=== PATIENT | male | born 1995 | race Caucasian/White ===

== ENCOUNTER 2023-12-03 22:09 | Observation (INO) | payer OTHER, SELFPAY ==
--- NOTE | ~2023-12-03 | MR_ITS ---
MRI of the brain Clinical History: Right-sided numbness Technique: Axial and sagittal T1-weighted images were acquired. These were followed by axial T2-weigh sol, diffusion weighted, gradient, and FLAIR images. Findings: There is no abnormal signal in the brain parenchyma. No acute infarct, intracranial hemorrh age, mass lesion. Ventricles and subarachnoid spaces are unremarkable. Orbits are unremarkable. Paranasal sinuses and m astoid air cells are clear. Major intracranial flow voids are intact. Sagittal midline structures are intact. IMPRESSION: Normal exam. Reviewed, dictated and finalized at location M. IMPRESSION: Normal exam.
--- NOTE | ~2023-12-03 | CT_ITS ---
CT ANGIOGRAM NECK AND HEAD History: Right-sided numbness. Technique: Axial noncontrast imaging of the brain was performed. Serial spiral axial images through t he head and neck were then obtained during arterial phase IV injection of 100 cc of Omnipaque 350. 3- D postprocessing and MIP images were then reconstructed on the remote workstation. Dose reduction owen hnique was used on this scan by utilizing automated exposure control and iterative reconstruction owen hnique. The dose-length product (DLP) was 1819.22 mGy-cm. CTA neck findings: Bilateral vertebral arteries are patent. Bilateral common carotid, internal carot id, and external carotid arteries are patent. No stenosis or large vessel occlusion. No aneurysm. The proximal right internal carotid artery demonstrates 0% stenosis relative to the normal distal artery lumen diameter. The proximal left internal carotid artery demonstrates 0% stenosis relative to the n ormal distal artery lumen diameter. CTA head findings: Distal vertebral arteries, basilar artery, and posters to arteries are patent. Dis cameron internal carotid arteries, middle cerebral arteries, and anterior cerebral arteries are patent. N o large vessel occlusion or stenosis. No aneurysm. Axial noncontrast imaging of the brain is unremarkable. No acute infarct, intracranial hemorrhage, or mass lesion seen. Elizabeth-white differentiation preserved. No mass effect or midline shift. Ventricles and subarachnoid spaces are nondilated. Orbits are unremarkable. The sinuses and mastoid air cells ar e clear. Calvarium intact. Impression: No significant abnormality seen. Reviewed, dictated and finalized at [facility]. Impression: No significant abnormality seen.
--- NOTE | ~2023-12-03 | MR_ITS ---
MRI of the thoracic spine Clinical History: Numbness Technique: Axial T2-weighted and gradient images, and sagittal T1-weighted, T2-weighted, and STIR cedric ges were acquired. Findings: There is no fracture or subluxation of the thoracic spine. Vertebral bodies maintain normal height and alignment. No bone marrow signal abnormality seen. Intervertebral spaces are well preserved throughout the thoracic spine. No disc bulge or herniation s een. No spinal canal stenosis or cord compression identified. Neural foramina are preserved throughou t the thoracic spine. No epidural mass or collection seen. No abnormal signal seen in the spinal cord. Paravertebral soft t issues are unremarkable. Impression: Unremarkable exam. Reviewed, dictated and finalized at location M. Impression: Unremarkable exam.
--- NOTE | ~2023-12-03 | MR_ITS ---
MRI of the lumbar spine Clinical History: Numbness Technique: Axial T2-weighted images, and sagittal T1-weighted, T2-weighted, and T2 fat-sat images wer e acquired. Findings: There is no fracture or subluxation of the lumbar spine. Vertebral bodies maintain normal h eight and alignment. Bone marrow signals are unremarkable. At L1-L2, L2-L3, L3-L4, L4-L5, intervertebral discs maintain normal signal and position. No disc bulg e or herniation T levels. There are minimal facet joint degenerative changes at these levels. No spin al canal stenosis or neural foraminal narrowing at these levels. At L5-S1, there is minimal central disc bulge/protrusion, with mild facet arthropathy. No central can al stenosis or neural foraminal narrowing. Paravertebral soft tissues are unremarkable. Impression: Minimal degenerative spondylosis at L5-S1, as above, otherwise unremarkable exam. Reviewed, dictated and finalized at [facility]. Impression: Minimal degenerative spondylosis at L5-S1, as above, otherwise unremarkable vidya murillo
--- NOTE | ~2023-12-03 | MR_ITS ---
MRI of the cervical spine Clinical History: Numbness Technique: Axial T2-weighted and gradient images, and sagittal T1-weighted, T2-weighted, and STIR cedric ges were acquired. Findings: There is no fracture or sublocation of the cervical spine. Vertebral bodies maintain normal height and alignment. No abnormal bone marrow signal abnormality seen. No disc bulge or herniation seen at any lumbar level. There is multilevel mild facet arthropathy. The re is mild bilateral neural foraminal narrowing at C3-C4, C4-C5, and possibly at C5-C6 and C6-C7. No canal stenosis or cord compression at any level. No epidural mass or collection seen. No abnormal signal seen in the spinal cord. Paravertebral soft t issues are unremarkable. Impression: Mild degenerative change, with multilevel mild facet arthropathy and multilevel mild neural foraminal narrowing, as detailed above. Reviewed, dictated and finalized at [facility]. Impression: Mild degenerative change, with multilevel mild facet arthropathy and multilevel mild neural foraminal narrowing, as detailed above.
[2023-12-03 22:11] VITALS: BP 131/76; PULSE 97; RESP 18; TEMP 36.4; O2SAT 99
[2023-12-03 22:29] VITALS: BP 120/84; PULSE 90; RESP 22; O2SAT 98
[2023-12-03 22:31] VITALS: BP 124/82; PULSE 91; RESP 20; O2SAT 99
[2023-12-03 22:46] VITALS: BP 118/75; PULSE 90; RESP 18; O2SAT 97
[2023-12-03 23:08] LABS: Basophils Absolute Auto 0.1 K/mm3 (0.0-0.1); Basophils Percent Auto 0.5 % (0.2-1.2); Eosinophils Absolute Auto 0.3 K/mm3 (0-0.3); Eosinophils Percent Auto 2.3 % (0-4.4); Hematocrit 42.7 % (42.0-52.0); Hemoglobin 14.5 g/dL (14.0-18.0); Immature Granulocyte Absolute 0.02 K/mm3 (0.00-0.031); Immature Granulocyte Percent A 0.2 % (0-0.5); Lymphocytes Absolute Auto 2.69 K/mm3 (0.9-3.2); Lymphocytes Percent Auto 24.3 % (18.3-44.2); Mean Corpuscular Hemoglobin 30.2 pg (26-34); Mean Platelet Volume 8.9 fl (7.4-10.4); Monocytes Absolute Auto 1.1 K/mm3 (0.1-0.6); Monocytes Percent Auto 9.5 % (2.6-8.5); Neutrophils Percent Auto 63.2 % (45.5-73.1); Platelet Count Result 310 k/mm3 (150-375); Red Cell Distribution Width 12.4 % (11.5-14.5); White Blood Count 11.1 K/mm3 (4.5-10.0)
[2023-12-03 23:15] VITALS: PULSE 80; RESP 18; O2SAT 98
--- NOTE | 2023-12-03 23:21 | PC.NURSE ---
care and report given to DARRYL Mora. all questions answered.
[2023-12-03 23:22] LABS: Alanine Aminotransferase 28 U/L (6-50); Albumin Level 4.1 g/dL (3.5-5.1); Alkaline Phosphatase 85 U/L (38-126); Anion Gap 9 mmol/L (4-12); Aspartate Amino Transferase 25 U/L (17-59); Bilirubin,Total 0.4 mg/dL (0.2-1.3); Blood Urea Nitrogen 18 mg/dL (9-20); Calcium 9.3 mg/dL (8.4-10.2); Carbon Dioxide 25 mmol/L (22-30); Chloride 105 mmol/L (98-107); Estimated CRCL calculation 95 ml/min; Estimated Glomerular Filt Rate > 60; Glucose 90 mg/dL (65-110); Magnesium 1.7 mg/dL (1.6-2.3); Potassium 4.1 mmol/L (3.4-5.0); Sodium 139 mmol/L (137-145)
--- NOTE | 2023-12-04 00:18 | ED.GENADULT ---
HPI - General Adult General Chief complaint: Unspecified Stated complaint: numbness Time Seen by Provider: 12/04/23 00:08 History of Present Illness HPI narrative: Patient is a 28-year-old male who presents to the emergency department this evening complaining of right sided numbness. Patient states that he was playing hockey around 9:00 p.m. when suddenly he started to feel some numbness and tingling down his right side of his body. Patient states that he did not get his he was just playing regularly did not fall or have any injuries. Patient denies any recent falls or trauma and states that he has had similar symptoms in the past that are precipitated with certain right upper extremity movement to but they have been localized to his right upper extremity and subside shortly after a few seconds but today the numbness and tingling was involving his entire right side of his body including his upper and lower extremity and continue to persist 3 hours later. Patient states that since then for the past 3 hours he has felt as though his entire right side is asleep. He denies any difficulty walking. Denies any history of back injury or trauma but states that he was told that he may have bulging disc in his neck which he has never followed up on and admits to history of right shoulder injury. Denies any additional symptoms or concerns at this time. Related Data Allergies Allergy/AdvReac Type Severity Reaction Status Date / Time No Known Allergies Allergy Verified 12/03/23 22:14 Review of Systems Review of Systems: All systems are reviewed and are negative unless stated otherwise in the HPI. Exam Narrative: General: Alert, awake, afebrile, in no acute distress. HEENT: PERRL, no rhinorrhea, no post nasal drip, oropharynx clear. Neck: No midline tenderness to palpation over the cervical spine. Cardiovascular: Regular rate and rhythm, no murmurs, rubs or gallops, no peripheral edema. Respiratory: Clear to auscultation bilaterally, no tachypnea, no wheezing, no rhonchi, no rubs, no respiratory distress. Abdomen: Soft, nontender, nondistended, no rebound, no guarding, no peritoneal signs. Musculoskeletal: No joint swelling or deformity, normal muscle tone. Back: No midline tenderness to palpation over the thoracic or lumbar spine. Skin: No rashes or petechia, no signs of infection. Psychiatric: Alert and oriented, normal behavior and judgment for situation. Neurological: Alert and oriented to person, place, and time. Follows all commands. No focal deficits, 5/5 motor strength in the bilateral upper and lower extremity, patient reports that his sensation over the bilateral upper and lower extremity is intact and equal but states that he feels as though his entire right side is numb, cranial nerves 2-12 grossly intact, speech is clear and fluent. Course Vital Signs Vital signs: Vital Signs Temperature 97.6 F 12/03/23 22:11 Pulse Rate 97 12/03/23 22:11 Respiratory Rate 18 12/03/23 22:11 Blood Pressure 131/76 12/03/23 22:11 Pulse Oximetry 99 12/03/23 22:11 Oxygen Delivery Room Air 12/03/23 22:11 Temperature 97.6 F 12/03/23 22:11 Pulse Rate 72 12/04/23 02:06 Respiratory Rate 15 12/04/23 02:06 Blood Pressure 118/76 12/04/23 02:06 Pulse Oximetry 98 12/04/23 02:06 Oxygen Delivery Room Air 12/03/23 22:11 Medical Decision Making MDM Narrative Medical decision making narrative: The patient was evaluated by myself in the emergency department. History is obtained from patient who is an independent historian and physical exam was performed. External medical records were reviewed at this time. IV was established and pertinent tests were ordered. Laboratory results obtained revealing no acute process. Imaging studies obtained included CT brain without IV contrast and CT angiogram of the head and neck with IV contrast which was independently interpreted by me revealing no acute process, which is pe
[2023-12-04 00:24] VITALS: BP 122/74; PULSE 80; RESP 15; O2SAT 100
[2023-12-04] MEDS: PANTOPRAZOLE SODIUM IV 40 MG VIAL IV PUSH (01:00)
[2023-12-04 02:06] VITALS: BP 118/76; PULSE 72; RESP 15; O2SAT 98
[2023-12-04 04:35] VITALS: BP 112/69; PULSE 68; RESP 18; TEMP 36.1; O2SAT 100
--- NOTE | 2023-12-04 04:51 | ADMGEN ---
This patient, Miguel Angel Sands, was admitted to [address] [place] [address] Room 310-01. Patient/family oriented to hospital policies and general routines including ID bracelet, bed and alarms, visiting hours, pain management, procedures, bathroom and other care routines, personal items, smoking policy, room service/diet, and visiting hours. Information on how to activate the Rapid Response Team has been discussed. Patient/Family are encouraged to report perceived risks to care and to ask questions if they do not understand what they are told or what they should do.
[2023-12-04 05:00] VITALS: BMI 24.9
--- NOTE | 2023-12-04 05:12 | ADMGEN ---
This patient, Miguel Angel Sands, was admitted to [address] [place] [address] Room 310-01. Patient/family oriented to hospital policies and general routines including ID bracelet, bed and alarms, visiting hours, pain management, procedures, bathroom and other care routines, personal items, smoking policy, room service/diet, and visiting hours. Information on how to activate the Rapid Response Team has been discussed. Patient/Family are encouraged to report perceived risks to care and to ask questions if they do not understand what they are told or what they should do.
--- NOTE | 2023-12-04 05:28 | PM.IMHP ---
H&P: HPI History of Present Illness Date/Time: 12/04/23 05:28 Chief Complaint: numbness Narrative: This is a 28-year-old male with no significant past medical history comes to the emergency room after having episode of numbness of right upper extremity and right lower extremity while playing hockey, denies weakness. Patient has been in his usual state of health up until this point, denies any fevers, rigors, chills, nausea, vomiting, diarrhea, abdominal pain, cough, sputum production, muscle aches and pains. Preliminary workup has been essentially nonrevealing. Patient has been placed in observation for further evaluation management and treatment. CT ANGIOGRAM NECK AND HEAD History: Right-sided numbness. Technique: Axial noncontrast imaging of the brain was performed. Serial spiral axial images through the head and neck were then obtained during arterial phase IV injection of 100 cc of Omnipaque 350. 3-D postprocessing and MIP images were then reconstructed on the remote workstation. Dose reduction technique was used on this scan by utilizing automated exposure control and iterative reconstruction technique. The dose-length product (DLP) was 1819.22 mGy-cm. CTA neck findings: Bilateral vertebral arteries are patent. Bilateral common carotid, internal carotid, and external carotid arteries are patent. No stenosis or large vessel occlusion. No aneurysm. The proximal right internal carotid artery demonstrates 0% stenosis relative to the normal distal artery lumen diameter. The proximal left internal carotid artery demonstrates 0% stenosis relative to the normal distal artery lumen diameter. CTA head findings: Distal vertebral arteries, basilar artery, and posters to arteries are patent. Distal internal carotid arteries, middle cerebral arteries, and anterior cerebral arteries are patent. No large vessel occlusion or stenosis. No aneurysm. Axial noncontrast imaging of the brain is unremarkable. No acute infarct, intracranial hemorrhage, or mass lesion seen. Elizabeth-white differentiation preserved. No mass effect or midline shift. Ventricles and subarachnoid spaces are nondilated. Orbits are unremarkable. The sinuses and mastoid air cells are clear. Calvarium intact. Impression: No significant abnormality seen. Review of Systems Review of Systems: Right upper extremity and right lower extremity numbness Constitutional: Constitutional: Denies body ache(s), Denies chills, Denies fever(s), Denies headache(s) and Denies night sweats Eyes: Eyes: Denies change in vision ENT: Denies dysphagia, Denies nasal congestion, Denies nasal discharge, Denies odynophagia and Denies disequilibrium Cardiovascular: Cardiovascular: Denies chest pain Respiratory: Respiratory: Denies chest congestion and Denies cough Gastrointestinal: Gastrointestinal: Denies abdominal pain, Denies diarrhea, Denies nausea and Denies vomiting Genitourinary: Genitourinary: Denies dysuria Musculoskeletal: Musculoskeletal: Denies back pain, Denies myalgias, Denies arthralgias, Denies muscle cramps, Denies muscle weakness, Reports numbness and Reports tingling Integumentary/Breasts: Skin/Breast: Denies rash Neurologic: Denies Abnormal speech present, Denies abnormal gait, Denies focal weakness, Reports numbness and Denies Sensory deficit (Neuro) Psychiatric: Psychiatric: Reports no additional psychiatric complaints and Reports as per HPI Endocrine: Endocrine: Denies cold intolerance, Denies heat intolerance, Denies polyphagia, Denies polydipsia, Denies polyuria and Denies palpitations Hematologic/Lymphatic: Hematologic/Lymphatic: Reports no additional hematologic/lymphatic complaints and Reports as per HPI Allergic/Immunologic: Allergic/Immunologic: Reports no additional allergic/immunologic complaints and Reports as per HPI [facility] Social History Social History Smoking status: Never smoker Alcohol intake: curr
--- NOTE | 2023-12-04 07:07 | PM.IMPN ---
Progress Note: A&P Assessment and Plan (1) Numbness on right side: Code(s): R20.0 - Anesthesia of skin Status: Acute Assessment and Plan: Right upper extremity tingling and numbness has been an ongoing issue since ' when his shoulder popped playing hockey. He reports 10 episodes since that time. He denies lower extremity involvement till now. Today he continues to endorse right upper extremity numbness and tingling from the shoulder to the fingertips. He notes that the right lower extremity numbness has since resolved. Strength and sensation remains intact on exam. Patient states that he has been on several float trips here recently. He did have a tick on him about a month ago that he had to remove. He denies any rashes, headache, neck stiffness, fever/chills. He notes that he has been under a bit more stress recently since starting to build a house and working full-time. Denies drug use. - Neurology consulted - MRI of brain and C/T spine to rule out demyelinating disease or other spinal cord pathology. MRI of entire neuraxis is unrevealing. - B12, TSH, folate ordered. Lyme disease also ordered, however unlikely. Time Spent With Patient Time with patient: 25 - 35 minutes Subjective Date/time seen: 12/04/23 07:07 Interval history: 28-year-old male who presents to the emergency department this evening complaining of right sided numbness. Patient is pleasant lying comfortably in bed. He states that the right upper extremity tingling and numbness has been an ongoing issue since where his shoulder popped playing hockey causing the symptoms. The symptoms later resolved and he thought nothing of them. He states since that time that he has had about 10 episodes of tingling and numbness to the right arm. He states that the right upper extremity tingling and numbness has been the same during each episode. He denies lower extremity involvement during any of these times. On assessment today he continues to endorse right upper extremity numbness and tingling from the shoulder to the fingertips. He notes that the right lower extremity numbness has since resolved. Strength and sensation remains intact on exam. Patient denies any gait changes or recent falls. He denies any trauma to the arm leg and back. Patient states that he has been on several float trips here recently. He did have a tick on him about a month ago that he had to remove. He denies any rashes, headache, neck stiffness, fever/chills. He notes that he has been under a bit more stress recently since starting to build a house and working full-time. He denies any drug use. Review of Systems Review of Systems: All systems reviewed & are unremarkable except as noted in HPI and below Exam Narrative: AF HR 72 RR 19 SpO2 100 BP 116/72 General: well nourished, well-developed male in no acute respiratory distress who is nontoxic appearing, lying semi recumbent in bed. HEENT: Normocephalic. Atraumatic. Pupils equal round reactive to light. Extraocular movement intact. Sclera clear and anicteric. No facial asymmetry. Chest: Lungs are clear to auscultation bilaterally. No wheezes or crackles. CV: Heart was regular rate and rhythm. S1/S2. No murmurs, gallops, or rubs. Abd: Abdomen was soft. Nontender. Nondistended. Postive bowel sounds. No organomegaly or masses. Ext: No clubbing, cyanosis, or edema. 2+ DP pulses bilaterally. Neuro: Patient is alert and oriented x4. Strength is 5/5 in both upper and lower extremities. Tingling/numbness to right upper extremity. Cranial nerves 2-12 are intact. Speech is clear. Psych: Normal mood and affect. Patient is pleasant and cooperative. Skin: Warm and dry. No rashes noted. Objective Data Vital Signs Vital Signs: Vital Signs - 24 hr 12/03/23 22:11 12/03/23 22:29 12/03/23 22:31 Temperature 97.6 F Pulse Rate 97 90 91 Respiratory Rate 18 22 H 20 Blood Pressure 131/76 120/84 124/82 Pulse Oximetry 99
[2023-12-04 09:17] VITALS: O2SAT 100
[2023-12-04] MEDS: FAMOTIDINE 20 MG TABLET PO (09:42)
--- NOTE | 2023-12-04 10:23 | WPDNEURCNPN ---
Assessment and Plan Assessment and plan (1) Numbness on right side: Code(s): R20.0 - Anesthesia of skin Status: Acute Plan Mr. Sands is a 28 year old male with no significant past medical history presenting due to RUE and RLE numbness. Obtained MRI of brain and C/T spine to rule out demyelinating disease or other spinal cord pathology. MRI of entire neuraxis is unrevealing. Could still be radiculopathy. Will check B12, folate, TSH. If symptoms persist, recommend outpatient EMG/NCS. He has a hockey game tomorrow, which I told him he should not participate in. I advised against any contact sports for the next two weeks. He should follow-up with his PCP regarding clearance to resume playing after that. Consult date: 12/04/23 Reason for consult: R sided numbness HPI: Miguel Angel Sands is a 28 year old male with no significant past medical history presenting for R sided numbness. Patient was playing hockey around 2100 on 12/02 wgeb ge started to experience numbness/tingling on the R side of his body. He denied any preceding fall or trauma. Patient reported that he has had similar symptoms in the past that are precipitated with certain right upper extremity movement to but they have been localized to his right upper extremity and subside shortly after a few seconds. This episode was different in the sense that it involved the RUE and RLE and persisted for at least three hours. MRI of the entire neuraxis obtained which was unrevealing. Review of Systems Review of Systems: All systems reviewed & are unremarkable except as noted in HPI and below [facility] Social History Social History Smoking status: Never smoker Alcohol intake: current Substance use: never Do You Feel Safe in your Home?: Yes Lack of Transportation: No Lack of Food: Never True Current Housing: I Have Housing Concerned About Future Housing: No Difficulty Paying Gas/Electric Bills: No Difficulty Paying for Meds: No Currently Unemployed: No Education: Associate Degree Difficulty w/ Childcare or Family Care: No Spiritual care concerns: No Meds Home Medications and Allergies Home Medications Medication Instructions Recorded Confirmed Type Pepcid 20 mg PO BID gerd 12/04/23 12/04/23 History Allergies Allergy/AdvReac Type Severity Reaction Status Date / Time Fish Containing Products Allergy Swelling Verified 12/04/23 05:35 of Lip/Tongue/Throat peanut Allergy Unknown Verified 12/04/23 05:35 Vital Signs Vital Signs - 24 hr 12/03/23 22:11 12/03/23 22:29 12/03/23 22:31 Temperature 36.4 C Pulse Rate 97 90 91 Respiratory Rate 18 22 H 20 Blood Pressure 131/76 120/84 124/82 Pulse Oximetry 99 98 99 Oxygen Delivery Room Air 12/03/23 22:46 12/03/23 23:15 12/04/23 00:24 Temperature Pulse Rate 90 80 80 Respiratory Rate 18 18 15 Blood Pressure 118/75 122/74 Pulse Oximetry 97 98 100 Oxygen Delivery 12/04/23 02:06 12/04/23 04:35 12/04/23 09:17 Temperature 36.1 C L Pulse Rate 72 68 Respiratory Rate 15 18 Blood Pressure 118/76 112/69 Pulse Oximetry 98 100 100 Oxygen Delivery Room Air Exam Const: General: comfortable, no acute distress and well nourished HENMT: Head: normocephalic and atraumatic Ears: hearing grossly normal bilaterally and external ears normal Eyes: General: appearance normal, both eyes and all related structures Eyelids: eyelids normal Conjunctivae: conjunctivae normal Pupils: Equal, round and reactive pupils present EOM: EOMs intact bilaterally and No Nystagmus present Resp: Effort & Inspection: normal respiratory effort Skin: General skin exam: normal color and no rashes or lesions noted Neuro: Cranial nerves: Yes CN's II-XII intact bilaterally, Yes Equal, round and reactive pupils present, Yes Bilaterally intact EOM present, Yes Nystagmus not present, Yes Normal facial strength present, Yes facial symm
[2023-12-04 14:00] VITALS: BP 116/72; PULSE 72; RESP 19; TEMP 36.6; O2SAT 100
[2023-12-04 22:05] LABS: Folic Acid 4.5 ng/mL (2.76->20)
--- NOTE | 2023-12-04 22:06 | PC.NURSE ---
I entered pt's room at approximately 2100 and the lights were off and the bed empty. The bathroom door was closed so I thought pt was using the toilet. I left to give meds to another pt. I returned about 10 minutes later and the room was the same. I knocked on the bathroom door but got no answer. I opened the bathroom door and it was empty. I checked the room and closets for pt's belongings and they were all gone. I notified the prefabricated houses trimmer immediately that pt had absconded.
--- NOTE | 2023-12-17 08:57 | PM.EVENT ---
Event Note Event Note Event Note: Patient left AMA overnight on 12/03. Final diagnosis: Numbness of right side
== END 2023-12-04 21:44 | disposition left against medical advice (07) ==
LOC: ANHED 12-04 03:04 → ANH3MEDSUR 12-04 04:25
PROVIDERS: Student in an Organized Health Care Education/Training Program; Admitting Provider Internal Medicine; Emergency Provider Emergency Medicine; Visit Provider Internal Medicine
DX: R20.0 Anesthesia of skin (principal)
CPT/HCPCS: 36415; 70496; 70498; 70551; 72141; 72146; 72148; 80053; 82607; 82746; 83735; 84443; 85025; 96374; 99285; A9270; C9113; G0378; Q9967

== ENCOUNTER 2025-03-19 03:24 | Emergency (ER) | payer BC, SELFPAY ==
[2025-03-19 03:25] VITALS: BP 140/76; PULSE 102; RESP 18; TEMP 36.4; O2SAT 96
--- OUTSIDE RECORDS SUMMARY | 2025-03-19 03:26 | XMS_ITS | Clinical Summary ---
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 6 tablet Active Additional Information Patient not taking.Reported on 08/27/2023 dextromethorpha n (DELSYM) syrup 30 mg/5 mLIndications:C ough Take 10 mL (60 mg total) by mouth 2 (two) times a day 89 mL Active Additional Information Patient not taking.Reported on 08/27/2023 Active Problems No known active problems Surgical History Surgery Date Site/Laterality Comments NO PAST SURGERIES FLUORO GUIDED ASPIRATION OR INJECTION INTERMEDIATE JOINT RIGHT 09/02/2023 Right Medical History Medical History Date Comments Asthma Social History Tobacco Use Types Packs/Day Years Used Date Smoking Tobacco: Never Smokeless Tobacco: Never Tobacco Cessation:Counseling Given: Not Answered PHQ-2 Answer Date Recorded PHQ-2 Total Score (If total score is 3 or more points, staff should administer the PHQ-9) 1 10/01/2023 PHQ-9 Answer Date Recorded PHQ-9 Total Score 1 10/01/2023 Personal Safety Answer Date Recorded Have you ever been in or are you currently in a harmful physical or emotional relationship or is someone making you feel afraid or unsafe? Denies 06/24/2023 Sex and Gender Information Value Date Recorded Sex Assigned at Not on file Legal Sex Male 9:26 AM [employer] Gender Identity Not on file Sexual Orientation Not on file Obstetrics History Last Filed Vital Signs Vital Sign Reading Time Taken Comments Blood Pressure 121/67 10/01/2023 3:47 PM CDT Pulse 77 10/01/2023 3:47 PM CDT Temperature 36.7 C (98.1 F) 09/02/2023 12:30 PM CDT Respiratory Rate 16 10/01/2023 3:47 PM CDT Oxygen Saturation 97% 10/01/2023 3:47 PM CDT Inhaled Oxygen Concentration - - Weight 81.6 kg (180 lb) 07/11/2023 8:49 AM [employer] Height 177.8 cm (5' 10) 07/11/2023 8:49 AM [employer] Body Mass Index 25.83 07/11/2023 8:49 AM [employer] Plan of Treatment Health Maintenance Due Date Last Done Comments Hepatitis C Screening 1995 Varicella Vaccines (2 of 2 - 2-dose childhood series) 1999 08/10/1996 Regular Well Visit/Exam 18-64 2013 DTaP/Tdap/Td Vaccine (6 - Td or Tdap) 11/03/2017 11/04/2007, 10/18/1999, 02/09/1996, Additional history exists HPV Vaccines (1 - 3-dose SCDM series) 2022 Depression Screening 09/30/2024 10/01/2023, 10/01/2023, 08/27/2023, Additional history exists Influenza Vaccine (#1) 2025 Hepatitis B Screening Completed 05/12/1996 , 1995, 1995 Pneumococcal vaccine <65 Aged Out No longer eligible based on patient's age to complete this topic Insurance [facility] PL[facility] Care Teams 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
[2025-03-19] MEDS: TETANUS,DIPHTHERIA,AC PERTUSSIS ADULT (0.5 ML) BOOSTRIX IM (04:33)
--- NOTE | 2025-03-19 05:13 | ED.GENADULT ---
HPI - General Adult General Chief complaint: Wound/Laceration Stated complaint: R finger lacs Time Seen by Provider: 03/19/25 03:32 History of Present Illness HPI narrative: Patient is a 29-year-old male who presents emergency department this morning status post a right ring finger laceration. Patient states that he was working on his motorcycle and accidentally cut the finger on the wheel. Lactic does extend into the nail bed. Patient is unsure of when his last tetanus shot was. Denies any additional injuries or concerns. Related Data Home Medications ?Medication ?Instructions ?Recorded ?Confirmed ?Last Taken ?Type Pepcid 20 mg PO BID gerd 12/04/23 12/04/23 Unknown History Allergies Allergy/AdvReac Type Severity Reaction Status Date / Time Fish Containing Products Allergy Swelling Verified 12/04/23 05:35 of Lip/Tongue/Throat peanut Allergy Unknown Verified 12/04/23 05:35 Review of Systems Review of Systems: All systems are reviewed and are negative unless stated otherwise in the HPI. [facility] Social History Social History Smoking status: Never smoker Alcohol intake: current Substance use: never Do You Feel Safe in your Home?: Yes Lack of Transportation: No Lack of Food: Never True Current Housing: I Have Housing Concerned About Future Housing: No Difficulty Paying Gas/Electric Bills: No Difficulty Paying for Meds: No Currently Unemployed: No Education: Associate Degree Difficulty w/ Childcare or Family Care: No Spiritual care concerns: No Exam Narrative: General: Alert, awake, afebrile, in no acute distress. HEENT: PERRL, no rhinorrhea, no post nasal drip, oropharynx clear. Neck: Trachea midline, no JVD, no lymphadenopathy. Cardiovascular: Regular rate and rhythm, no murmurs, rubs or gallops, no peripheral edema. Respiratory: Clear to auscultation bilaterally, no tachypnea, no wheezing, no rhonchi, no rubs, no respiratory distress. Abdomen: Soft, nontender, nondistended, no rebound, no guarding, no peritoneal signs. Musculoskeletal: No joint swelling or deformity, normal muscle tone, laceration to the distal aspect of the right ring finger extending into the nail bed with complete nailbed avulsion. Skin: No rashes or petechia, no signs of infection. Psychiatric: Alert and oriented, normal behavior and judgment for situation. Neurological: Alert and oriented to person, place, and time. Follows all commands. No focal deficits, speech is clear and fluent. Course Vital Signs Vital signs: Vital Signs Temperature 97.6 F 03/19/25 03:25 Pulse Rate 102 H 03/19/25 03:25 Respiratory Rate 18 03/19/25 03:25 Blood Pressure 140/76 03/19/25 03:25 Pulse Oximetry 96 03/19/25 03:25 Oxygen Delivery Room Air 03/19/25 03:25 Temperature 97.6 F 03/19/25 03:25 Pulse Rate 102 H 03/19/25 03:25 Respiratory Rate 18 03/19/25 03:25 Blood Pressure 140/76 03/19/25 03:25 Pulse Oximetry 96 03/19/25 03:25 Oxygen Delivery Room Air 03/19/25 03:25 Procedures Laceration Laceration 1: Date: 03/19/25 Time: 05:25 Site: hand Side (If applicable): right Size (cm): 1 Description: linear and flap Depth: simple, single layer Local Anesthetic: lidocaine 1% Amount of anesthesia used (mL): 3 Pre-repair: wound explored, irrigated, minor debridement and deep structures intact ====== Skin Level ====== Skin layer closed with: nylon Size (cm): 5-0 Number of sutures: 3 Technique: simple, interrupted ====== Subcutaneous Layer ====== Subcutaneous layer closed with: vicryl ( Nail bed repair) Size: 5-0 Number of sutures: 1 Technique: simple, interrupted ====== Muscle Layer ====== ====== Tendon Layer ====== Medical Decision Making MDM Narrative Medical decision making narrative: The patient was evaluated by myself in the emergency department. History is obtained from patient who is an independent historian and physical exam was performed. External medical records were reviewed at this time. Patient's laceration/nailbed was repaired as detailed under procedural note. Tetanus was updated today. Differential diagnosis considerations include nail bed injury, laceration, abrasion. Comorbidities impacting this visit include none. I have evaluated and discussed social determinants of health with the patient that could potentially impact subsequent diagnosis and treatment plans. On repeat assessment of the patient, reevaluation revealed that the patient is doing well and is in no acute distress. Patient symptoms have improved since he arrived to our emergency department. Repeat vital signs were all reviewed and noted to be stable. Differential diagnosis and treatment plan were discussed with the patient at bedside. Patient agrees with discussion and after shared medical decision making agrees with discharge. All questions were answered to the patient's satisfaction. Patient will follow up with hand surgery in 3-5 days. Script for Keflex and [place] were sent to patient's pharmacy to use as prescribed. Patient was provided with strict return precautions and instructed to return to the emergency department if any new or worsening symptoms develop. The patient was discharged in stable condition. Vital Signs Vital Signs: Vital Signs Temperature 97.6 F 03/19/25 03:25 Pulse Rate 102 H 03/19/25 03:25 Respiratory Rate 18 03/19/25 03:25 Blood Pressure 140/76 03/19/25 03:25 Pulse Oximetry 96 03/19/25 03:25 Oxygen Delivery Room Air 03/19/25 03:25 Temperature 97.6 F 03/19/25 03:25 Pulse Rate 102 H 03/19/25 03:25 Respiratory Rate 18 03/19/25 03:25 Blood Pressure 140/76 03/19/25 03:25 Pulse Oximetry 96 03/19/25 03:25 Oxygen Delivery Room Air 03/19/25 03:25 Discharge Plan Discharge Clinical Impression: Laceration, Avulsion of nail Patient Disposition: Home Condition: Improved Instructions: Antibiotic Form, Laceration (ED), Nail Avulsion (ED) Additional Instructions: Please follow-up with the hand surgeon you were provided with today within the next 3-5 days. Use the prescribed pain medication as needed for pain and the prescribed antibiotic as instructed. Return to ED if any new or worsening symptoms develop. The 3 not dissolvable sutures that were placed today will need to be removed I medical professional within the next 7-10 days. Patient Language: Cook Islander Prescriptions: New cephalexin 500 mg capsule 500 mg PO Q12H 7 Days Qty: 14 0RF No Action Pepcid 20 mg PO BID Follow-up/Referrals: Stephy Dickey [Other] Tameka Escalera MD [Physician, Plastic Surgery] - 3 Days Time of Disposition: 05:18
[2025-03-19 05:50] VITALS: BP 125/68; PULSE 67; RESP 18; O2SAT 99
== END 2025-03-19 05:52 | disposition home or self-care (01) ==
PROVIDERS: Emergency Provider Emergency Medicine
DX: S61.314A Laceration without foreign body of right ring finger with damage to nail, initial encounter (principal); W26.8XXA Contact with other sharp object(s), not elsewhere classified, initial encounter; Z23 Encounter for immunization
CPT/HCPCS: 12041; 90471; 90715; 99282; A9270